=== PATIENT | male | born 1990 ===

== ENCOUNTER 2020-12-30 00:05 | Emergency (ER) | payer OTHER ==
[2020-12-30 00:33] VITALS: BP 113/67; PULSE 94; TEMP 97.8; BMI 27.3
[2020-12-30] MEDS ORDERED: ACETAMINOPHEN 325 MG TABLET (FP) PO ONE (00:45)
[2020-12-30] MEDS ORDERED: ACETAMINOPHEN 325 MG TABLET (FP) ONE (01:54)
== END 2020-12-30 06:47 | disposition home or self-care (01) ==
LOC: JER 00:05
DX: S01.01XA Laceration without foreign body of scalp, initial encounter (principal); W19.XXXA Unspecified fall, initial encounter
CPT/HCPCS: 70450-TC; 99284-25

== ENCOUNTER 2021-02-17 03:03 | Emergency (ER) | payer OTHER ==
[2021-02-17 03:15] VITALS: BP 123/76; PULSE 82; TEMP 97.9; BMI 25.8
[2021-02-17] MEDS ORDERED: AMOX TR/POT CLAV 500MG/125MG TABLETS (FP) PO ONE (03:24)
[2021-02-17] MEDS ORDERED: AMOX TR/POT CLAV 500MG/125MG TABLETS (FP) ONE (03:39)
== END 2021-02-17 05:59 | disposition home or self-care (01) ==
LOC: JER 03:03
DX: H60.91 Unspecified otitis externa, right ear (principal); F10.929 Alcohol use, unspecified with intoxication, unspecified
CPT/HCPCS: 99283-25